=== PATIENT | male | born 1995 | race Caucasian/White ===

== ENCOUNTER 2020-01-25 10:29 | Emergency (ER) | payer OTHER ==
[~2020-01-25] VITALS: Ht 167.6 cm; Wt 49.9 kg
[2020-01-25 11:21] LABS: INFLUENZA A ANTIGEN Negative (Negative); INFLUENZA B ANTIGEN Negative (Negative)
[2020-01-25] MEDS ORDERED: ONDANSETRON HCL4 M2 PO (11:40)
[2020-01-25] MEDS ORDERED: TESSALON PERLE100 MG PO (11:40)
[2020-01-25] MEDS ORDERED: PREDNISONE 10 M10 M1 PO (11:40)
[2020-01-25 12:00] VITALS: BP 115/72
== END 2020-01-25 12:01 | disposition home or self-care (01) ==
LOC: M.ERS 10:29
PROVIDERS: Emergency Medicine
DX: J06.9 Acute upper respiratory infection, unspecified (principal)